=== PATIENT | female | born 1960 | race Caucasian/White ===

== ENCOUNTER 2021-11-15 09:46 | Outpatient (CLI) | payer BC, SELFPAY ==
[2021-11-15 12:26] LABS: Albumin* 4.1 g/dL (3.3-5.0); Chloride* 104 mmol/L (96-114)
[2021-11-15 12:27] LABS: Sodium* 141 mmol/L (135-149)
[2021-11-15 12:29] LABS: Cholesterol* 177 mg/dL (90-199); Creatinine* 0.8 mg/dL (0.5-1.5); Estimated Glomerular Filt Rate 84 ml/min
[2021-11-15 12:30] LABS: Alanine Aminotransferase* 14 U/L (4-35); Alkaline Phosphatase* 82 U/L (40-150); Aspartate Amino Transferase* 23 U/L (12-35); Bilirubin Total* 0.4 mg/dL (0.1-1.5); Blood Urea Nitrogen* 19 mg/dL (7-30); Calcium* 8.7 mg/dL (8.4-10.6); Carbon Dioxide* 32 mmol/L (20-32); Glucose* 94 mg/dL (60-115); HDL Cholesterol* 61 mg/dL (>=50); LDL Cholesterol Calculated 102 mg/dL (<100); Total Protein* 6.9 g/dL (6.0-8.3); Triglycerides* 71 mg/dL (40-149)
== END 2021-11-15 09:47 | disposition home or self-care (01) ==
PROVIDERS: PCP Family Medicine; Visit Provider Family Medicine
DX: Z01.419 Encounter for gynecological examination (general) (routine) without abnormal findings (principal); E78.5 Hyperlipidemia, unspecified
CPT/HCPCS: 80053; 80061

== ENCOUNTER 2021-11-17 14:41 | Outpatient (CLI) | payer BC, SELFPAY | END 2021-11-17 14:42 | disposition home or self-care (01) | LOC: NFLDREF 12-10 11:29 | PROVIDERS: PCP Family Medicine; Visit Provider Family Medicine | DX: Z01.419 Encounter for gynecological examination (general) (routine) without abnormal findings (principal) | CPT/HCPCS: 87624; 88175 ==

== ENCOUNTER 2021-12-10 16:30 | Outpatient (RCR) | payer BC, SELFPAY | END 2022-11-09 11:08 | disposition home or self-care (01) | PROVIDERS: PCP Family Medicine; Visit Provider Family Medicine | DX: M79.601 Pain in right arm (principal); Z51.89 Encounter for other specified aftercare | CPT/HCPCS: 97033; 97035; 97140; 97165 ==

== ENCOUNTER 2021-12-17 15:12 | Emergency (ER) | payer BC, SELFPAY ==
[2021-12-17] VITALS (7 sets, daily range): BP systolic 124–129; BP diastolic 76–84; PULSE 72–87; RESP 18; TEMP 36.9; O2SAT 98–99; BMI 24.2
[2021-12-17 15:51] LABS: Appearance Urine Clear (Clear); Bilirubin Urine Negative (Negative); Blood Urine 3+ (Negative); Color Urine Yellow (Yellow); Glucose Urine Negative (Negative); Ketones Urine Negative (Negative); Leukocyte Esterase Urine Negative (Negative); Nitrite Urine Negative (Negative); Protein Urine Negative (Negative); Urobilinogen Urine 0.2 (0.2-1.0)
--- NOTE | 2021-12-17 15:51 | ED_ITS ---
HPI - Female Genitourinary General Chief complaint: Abdominal Pain Stated complaint: DISCOLORED URINE,ABDOMINAL PAIN - SENT BY CLINIC Time Seen by Provider: 12/17/21 15:14 History of Present Illness HPI Narrative: Lauren is a 61-year-old female patient without significant past medical history who presents to the emergency department via POV with complaints of discolored urine 1 day prior to presentation. The patient reports that she called the clinic and was advised to come to the emergency department for further evaluation and treatment. Patient denies fever, chills, or sweats. The patient denies nausea, vomiting, or significant abdominal pain. The patient reports 1 day prior to presentation she had some bloating, which she felt was secondary to gas. She reports that improved today prior to presentation. She denies changes in her bowel habits. She denies a history of frequent UTI. She reports a remote history of nephrolithiasis, but she reports this pain is not similar to previous kidney stone. She has received no treatment prior to arrival, and she reports that her symptoms appear to have resolved on their own. Since onset of symptoms 1 day prior, she did increase her oral intake of water. When she gave urine sample for testing, she reports the urine color has cleared. Related Data Home Medications Medication Instructions Recorded Confirmed cholecalciferol (vitamin D3) 25 25 mcg PO QDAY 11/17/21 11/17/21 mcg (1,000 unit) capsule pyridoxine (vitamin B6) 100 mg 50 mg PO QDAY 11/17/21 11/17/21 tablet Previous Rx's Medication Instructions Recorded tamsulosin 0.4 mg capsule (Flomax) 0.4 mg PO DAILY #14 caps 12/17/21 tramadol 50 mg tablet (Ultram) 50 mg PO BID PRN pain #14 tabs 12/17/21 Allergies Allergy/AdvReac Type Severity Reaction Status Date / Time No Known Drug Allergies Allergy Verified 11/17/21 13:27 Review of Systems Const: Reports: fatigue and malaise; Denies: fever or chills Cardio: Denies: chest pain, palpitations or shortness of breath with exertion Resp: Denies: shortness of breath or cough GI: Reports: abdominal pain; Denies: nausea, vomiting, heartburn, diarrhea, constipation, bloating or painful bowel movements : Reports: urinary frequency, urinary urgency and other (Rust colored urine); Denies: painful urination, blood in urine, difficulty voiding or decreased urine ouput Musculo: Denies: back pain Neuro: Denies: lack of coordination, dizziness or confusion Endo: Reports: fatigue; Denies: excessive urination PFSH PFSH Medical History (Updated 12/17/21 @ 18:06 by Tonie Reina DO) Dyslipidemia GERD (gastroesophageal reflux disease) (~2018) History of cardiovascular stress test History of kidney stones Surgical History (Updated 11/17/21 @ 13:50 by Marilynn Castro MD) History of appendectomy (1982) History of section (1989) Hx of LASIK (2016) Family History (Updated 10/21/21 @ 10:14 by Marilynn Castro MD) Father Coronary artery disease Stroke Family hx of prostate cancer Uncle Diabetes Aunt Breast cancer, Onset Age: 70 Rheumatoid arthritis Mother Autoimmune disorder Sister Fibromyalgia Maternal Grandfather Stroke Social History (Updated 10/21/21 @ 10:07 by Marilynn Castro MD) Narrative: , orthodontic assistant, 2 kids, lives in [place] Non smoker, 1-2 drinks/ week exercises 2-3/week , walking, biking Smoking Status: Never smoker Do you use any of these nicotine containing products: None Second hand tobacco smoke exposure: No How often do you have a drink containing alcohol: monthly or less How many standard drinks containing alcohol do you have on a typical day: 1 or 2 How often do you have six or more drinks on one occasion: Never AUDIT-C Alcohol total score: 1 Non-prescribed substance use: denies use Little interest or pleasure in doing things: not at all Feeling down, depressed, or hopeless: not at all Exam Const: Vital Signs, click to edit/add: Vital Signs - 24 hr 12/17/21 15:25 12/17/21 16:37 12/17/21 17:01 Temperature 98.4 F Pulse Rate 72 75 Pulse Rate [Right Pulse Oximeter] 87 Respiratory Rate 18 Blood Pressure 126/76 Blood Pressure [Ri ght Upper Arm] 124/77 Pulse Oximetry 98 99 99 Oxygen Delivery Me thod Room Air 12/17/21 17:31 12/17/21 17:32 12/17/21 18:01 Temperature Pulse Rate 75 80 79 Pulse Rate [Right Pulse Oximeter] Respiratory Rate Blood Pressure 125/80 129/84 Blood Pressure [Ri ght Upper Arm] Pulse Oximetry 98 98 98 Oxygen Delivery Me thod 12/17/21 18:02 Temperature Pulse Rate 79 Pulse Rate [Right Pulse Oximeter] Respiratory Rate Blood Pressure Blood Pressure [Ri ght Upper Arm] Pulse Oximetry 98 Oxygen Delivery Me thod Documenting provider has reviewed patient's vital signs: yes Common normals: no apparent distress, average body habitus, oriented x3, no limitations, healthy appearing, alert and well nourished General appearance: cooperative, comfortable, well kempt and well developed; not in distress and not ill appearing Orientation/consciousness: Yes awake, Yes oriented to person, Yes oriented to place and Yes oriented to time HENMT: Common normals: normocephalic and head/scalp atraumatic Head and scalp: normocephalic and atraumatic Resp: Common normals: normal respiratory effort, no retractions, no use of accessory muscles and clear to auscultation bilaterally Effort & inspection: able to speak in complete sentences Auscultation: clear to auscultation bilaterally Cardio: Common normals: regular rate, regular rhythm, S1 normal heart sound, S2 normal heart sound, no gallops, no clicks and no murmurs Rate: regular rate Rhythm: regular rhythm Heart sounds: S1 normal and S2 normal GI: Common normals: Normal to inspection, nondistended, normoactive bowel sounds present and soft to palpation Palpation: soft and tender Details: suprapubic : Common normals: no CVA tenderness Bladder/kidney exam: no CVA tenderness Back & Pelvis: Common normals: no CVA tenderness Extremity: Common normals: normal to inspection and full ROM Neuro: Common normals: oriented x3, CN's II-XII intact bilaterally and moves all extremities Sensorium/orientation: awake, alert, oriented to person, oriented to place and oriented to time Motor exam: no movement abnormalities noted Psych: Appearance: grossly normal and well kempt Skin: Common normals: no rashes or lesions noted General skin exam: no rashes or lesions noted Course Vital Signs Vital signs: Initial Vital Signs Temperature 98.4 F 12/17/21 15:25 Temperature Source Temporal Artery Scan 12/17/21 15:25 Pulse Rate 87 12/17/21 15:25 Respiratory Rate 18 12/17/21 15:25 Blood Pressure 124/77 12/17/21 15:25 Blood Pressure Mean 92 12/17/21 15:25 Blood Pressure Position Sitting 12/17/21 15:25 Pulse Oximetry 98 12/17/21 15:25 Oxygen Delivery Method 12/17/21 15:25 Vital Signs Temperature 98.4 F 12/17/21 15:25 Pulse Rate 87 12/17/21 15:25 Respiratory Rate 18 12/17/21 15:25 Blood Pressure 124/77 12/17/21 15:25 Pulse Oximetry 98 12/17/21 15:25 Oxygen Delivery Method 12/17/21 15:25 Temperature 98.4 F 12/17/21 15:25 Pulse Rate 79 12/17/21 18:02 Respiratory Rate 18 12/17/21 15:25 Blood Pressure 129/84 12/17/21 18:01 Pulse Oximetry 98 12/17/21 18:02 Oxygen Delivery Method 12/17/21 15:25 MDM - Female Genitourinary Lab Data Labs: Lab Results 12/17/21 12/17/21 12/17/21 Range/Units 15:30 15:54 15:54 WBC 8.10 (4.50-11.00) K/uL RBC 4.57 (4.00-5.20) m/uL Hgb 13.1 (12.0-16.0) gm/dL Hct 40.3 (33.0-51.0) % MCV 88 (80-100) fL MCH 29 (26-34) pg MCHC 33 (32-36) gm/dL RDW Coeff of Maurice 12.4 (11.5-15.5) % Plt Count 277 (140-440) K/uL Neut % (Auto) 69.0 (42.0-72.0) % Lymph % (Auto) 24.2 (20-44) % [place] % (Auto) 5.6 (0.0-11.0) % Eos % (Auto) 0.5 (0.0-7.0) % Baso % (Auto) 0.2 (0.0-3.0) % Neut # (Auto) 5.59 (1.7-7.0) K/uL Lymph # (Auto) 1.96 (0.90-2.90) K/uL [place] # (Auto) 0.50 (0.00-0.90) K/UL Eos # (Auto) 0.04 (0.00-0.50) K/uL Baso # (Auto) 0.02 (0.00-0.30) K/uL Abs Immat Gran (auto) 0.04 (0.00-0.30) K/uL Sodium 140 (135-149) mmol/L Potassium 3.9 (3.6-5.1) mmol/L Chloride 105 (96-114) mmol/L Carbon Dioxide 28 (20-32) mmol/L BUN 16 (7-30) mg/dL Creatinine 0.8 (0.5-1.5) mg/dL Estimated Creat Clear 64.58 Estimated GFR 84 ml/min Glucose 117 H (60-115) mg/dL Calcium 8.9 (8.4-10.6) mg/dL Urine Color Yellow (Yellow) Urine Appearance Clear (Clear) Urine pH 7.0 (5.0-8.5) Ur Specific [place] 1.010 (1.000-1.030) Urine Protein Negative (Negative) Urine Glucose (UA) Negative (Negative) Urine Ketones Negative (Negative) Urine Blood 3+ A (Negative) Urine Nitrite Negative (Negative) Urine Bilirubin Negative (Negative) Urine Urobilinogen 0.2 (0.2-1.0) Ur Leukocyte Esterase Negative (Negative) Urine RBC 0-2 (0-2) Urine WBC 5-10 A (0-5) Ur Squamous Epith Cells None (None-Few) Urine Bacteria None (None) Discharge Plan Discharge Clinical Impression: Left nephrolithiasis, Thickened endometrium Patient Disposition: Home, Self-Care Condition: Stable Instructions: How to Strain Your Urine (ED) Additional Instructions: Thank you for choosing [facility] for your care today. Consider treatment with Flomax, NSAIDs, and pain medication. Use medication as directed. Urology referral discussed. Encouraged to drink plenty of water. Patient advised to eliminate soda and tea from diet. Discussed consideration of straining urine for stone analysis, if stone passes. Follow up recommended PRN. I recommend calling primary care for follow-up in the next 3-5 days for persistent symptoms. If new or worsening symptoms develop or you have any concerns in the meantime, please call your primary care clinic or return to the ER for re-evaluation. Activity Level: No Restrictions and Activity as Tolerated Discharge Diet: Regular and Heart Healthy (2 gm sodium, low fat) Prescriptions: New tamsulosin [Flomax] 0.4 mg capsule 0.4 mg PO DAILY Qty: 14 2RF tramadol [Ultram] 50 mg tablet 50 mg PO BID PRN (Reason: pain) Qty: 14 0RF No Action cholecalciferol (vitamin D3) 25 mcg (1,000 unit) capsule 25 mcg PO QDAY pyridoxine (vitamin B6) 100 mg tablet 50 mg PO QDAY Follow Up/Referrals: Marilynn Castro MD [Primary Care Provider] - 12/20/21 (Please assist patient with urology follow-up. In addition, incidental endometrial thickening noted. Recommend US at earliest availability.) Stand Alone Forms: [employer] Info Instructions
[2021-12-17 15:59] LABS: Basophils Absolute Auto 0.02 K/uL (0.00-0.30); Basophils Percent Auto 0.2 % (0.0-3.0); Eosinophils Absolute Auto 0.04 K/uL (0.00-0.50); Eosinophils Percent Auto 0.5 % (0.0-7.0); Hematocrit 40.3 % (33.0-51.0); Hemoglobin* 13.1 gm/dL (12.0-16.0); Immature Granulocytes Abs Auto 0.04 K/uL (0.00-0.30); Lymphocytes Absolute Auto 1.96 K/uL (0.90-2.90); Lymphocytes Percent Auto 24.2 % (20-44); Mean Corpuscular HGB Conc 33 gm/dL (32-36); Mean Corpuscular Hemoglobin 29 pg (26-34); Mean Corpuscular Volume 88 fL (80-100); Monocytes Percent Auto 5.6 % (0.0-11.0); Neutrophils Absolute Auto 5.59 K/uL (1.7-7.0); Platelet Count* 277 K/uL (140-440); RDW Coefficient of Variation % 12.4 % (11.5-15.5); Red Blood Count 4.57 m/uL (4.00-5.20)
--- NOTE | 2021-12-17 16:03 | CRLHL7_ITS ---
For Patients: As a result of the 21st Century Cures Act, medical imaging exams and procedure reports are released immediately into your electronic medical record. You may view this report before your referring provider. If you have questions, please contact your health care provider. INDICATION: Hematuria COMPARISON: There are no prior studies for comparison TECHNIQUE: CT examination of the abdomen and pelvis was performed without intravenous contrast. Thin section axial images were obtained from the lung bases through the pubic symphysis. Oral contrast was not administered. Please note that all CT scans at this facility use dose modulation, iterative reconstruction, and/or weight-based dosing when appropriate to reduce radiation dose to as low as reasonably achievable. FINDINGS: LUNG BASES: Trace basilar atelectasis. Heart size is normal at the lung bases.The heart size is normal at the lung bases. LIVER/BILIARY SYSTEM:The liver is normal in size and configuration given the lack of intravenous contrast. There is no visible focal mass and there is no intra- or extra hepatic biliary ductal dilatation.The gall bladder appears normal. ADRENALS: Normal non-contrast appearance KIDNEYS, URETERS and BLADDER:Normal size kidneys. No definite intrarenal calculus on right. Multiple intrarenal calculi on the left in the 1 to 3 millimeter range. There is left-sided obstructive uropathy due to a someone recall calculus at the left ureteropelvic junction. This measures 4.4 millimeters in diameter and 11.2 millimeters in length SPLEEN:Normal non-contrast appearance. PANCREAS: Normal non-contrast appearance. RETROPERITONEUM and MESENTERY: There is no mass, adenopathy or aortic aneurysm. GASTROINTESTINAL SYSTEM: There is no evidence of diverticulitis, colitis, mechanical obstruction, or appendicitis. The small bowel as visualized appears normal.Scattered diverticulosis PELVIS: There is either fluid within the endometrial canal or there is endometrial thickening. In either event, this is abnormal for a patient of this age warranting a follow-up ultrasound at a clinically appropriate time. OSSEOUS STRUCTURES and ABDOMINAL WALL: There is an age-appropriate appearance of the osseous structures.No significant abdominal wall defect. OTHER: No free fluid or free air. IMPRESSION: 1. Left-sided obstructive uropathy due to a cylindrical calcified calculus at the left ureteropelvic junction measuring 4 millimeters in diameter and 11.2 millimeters in length. Intrarenal calculi on the left. No intrarenal calculi on the right. 2. There is either fluid within the endometrial canal or endometrial thickening. Abnormal for a patient of this age. Sonography recommended at a clinically appropriate time for further evaluation. Please note that all CT scans at this facility use dose modulation, iterative reconstruction, and/or weight-based dosing when appropriate to reduce radiation dose to as low as reasonably achievable. Dictated by Jose Fuentes MD @ 12/17/2021 4:54:18 PM (Electronically Signed)
[2021-12-17 16:16] LABS: Slide Review Reflex No
[2021-12-17 16:29] LABS: Chloride* 105 mmol/L (96-114)
[2021-12-17 16:30] LABS: Potassium* 3.9 mmol/L (3.6-5.1); Sodium* 140 mmol/L (135-149)
[2021-12-17 16:32] LABS: Creatinine* 0.8 mg/dL (0.5-1.5); Est. Creatinine Clearance* 64.58; Estimated Glomerular Filt Rate 84 ml/min
[2021-12-17 16:33] LABS: Blood Urea Nitrogen* 16 mg/dL (7-30); Calcium* 8.9 mg/dL (8.4-10.6); Carbon Dioxide* 28 mmol/L (20-32); Glucose* 117 mg/dL (60-115)
[2021-12-17 16:45] LABS: RBC Urine 0-2 (0-2)
== END 2021-12-17 18:19 | disposition home or self-care (01) ==
PROVIDERS: Emergency Provider Family Medicine; PCP Family Medicine
DX: N20.0 Calculus of kidney (principal)
CPT/HCPCS: 36415; 74176; 80048; 81001; 81003; 85025; 87086; 99284

== ENCOUNTER 2021-12-29 13:47 | Outpatient (CLI) | payer BC, SELFPAY ==
--- NOTE | 2021-12-29 14:00 | CRLHL7_ITS ---
For Patients: As a result of the Century Cures Act, medical imaging exams and procedure reports are released immediately into your electronic medical record. You may view this report before your referring provider. If you have questions, please contact your health care provider. INDICATION: Follow-up abnormal finding on CT COMPARISON: CT 12/17/2021 TECHNIQUE: 2D oconnell scale and color Doppler images were acquired of the pelvis using a transabdominal and transvaginal approach. FINDINGS: Sonographic images demonstrate a normal size and smooth outer contour of the uterus. Uterus measures 6.7 cm in length by 3.0 cm in AP diameter by 0.2 cm in transverse dimension. The myometrium has a normal uniform echotexture. The endometrial lining appears thickened and heterogeneous with multiple small cystic areas and measures 11 mm in composite thickness. The right ovary measures 2.6 x 1.0 x 1.1 cm in size and the left ovary measures 2.1 x 1.3 x 1.4 cm. The ovaries demonstrate normal arterial and venous blood flow on color Doppler analysis. There are no suspicious fluid collections within the cul-de-sac. IMPRESSION: Thickened and heterogeneous endometrium measuring 11 millimeters, representing endometrial hyperplasia or adenomyosis. No uterine fibroid. No endometrial fluid. Dictated by Blas Li MD @ 12/29/2021 2:49:30 PM (Electronically Signed)
== END 2021-12-29 13:48 | disposition home or self-care (01) ==
PROVIDERS: PCP Family Medicine; Visit Provider Family Medicine
DX: R93.89 Abnormal findings on diagnostic imaging of other specified body structures (principal)
CPT/HCPCS: 76830; 76856

== ENCOUNTER 2022-02-08 08:11 | Outpatient (CLI) | payer BC, SELFPAY ==
--- NOTE | 2022-02-08 08:15 | CRLHL7_ITS ---
For Patients: As a result of the Century Cures Act, medical imaging exams and procedure reports are released immediately into your electronic medical record. You may view this report before your referring provider. If you have questions, please contact your health care provider. BILATERAL SCREENING MAMMOGRAM WITH COMPUTER-AIDED DETECTION TECHNIQUE: CC and MLO views were obtained. These mammographic images have been obtained using full-field digital technique. These mammographic images were interpreted with the benefit of computer-aided detection. COMPARISON FILM: [place] 2015, 2017, 2019. FINDINGS: There are scattered areas of fibroglandular density IMPRESSION: There is no radiographic evidence for malignancy. ASSESSMENT: BI-RADS Category 1: Negative RECOMMENDATION: Routine screening mammogram in 1 year. A lay language report of this examination will be provided to the patient. Blas Li M.D. Diagnostic Radiologist [email or web address] UVALDO/Dictated by: Blas Li MD @ 02/14/2022 8:43:00 AM (Electronically Signed)
--- OUTSIDE RECORDS SUMMARY | 2022-02-08 08:17 | XMS_ITS | Clinical Summary ---
:1960 Author Organization [employer] [facility] Address [place] [address] Care Team Providers Name Role Phone Marilynn Castro MD Primary Care Provider [phone] Allergies No known active allergies Medications Medication Sig Dispensed Refills Start Date End Date Status cholecalciferol Take 1,000 units by 0 Active (VITAMIN D3) 1,000 mouth once daily. unit capsule pyridoxine, vitamin Take by mouth once 0 Active B6, (VITAMIN B6) 100 daily. mg tablet HYDROcodone-acetamino Take 1-2 Tablets by 10 Tablet 0 01/11/20 22 Active phen (NORCO) 5-325 mg mouth every 4 hours per if needed for Pain. tabletIndications: Max acetaminophen Calculus of kidney dose: 4000 mg in 24 and ureter hrs. oxybutynin (DITROPAN) Take 1 Tablet (5 20 Tablet 1 01/10/2022 Active 5 mg mg) by mouth 3 tabletIndications: times daily if Calculus of kidney needed (Bladder and ureter Spasm). Active Problems No known active problems Encounters Date Type Specialty Care Team Description 01/10/2022 Anesthesia Event Anthony Mack MD Laberge, Thomas Patrick, MD 01/10/2022 Surgery Blas Sanz, CYSTOSC OPY, LEFT MD URETEROSCOPY, L EFT RETROGRADE PYEL OGRAM, LASER LITHOTRIP SY, LEFT URETERAL STENT PLACEMENT 01/10/2022 Hospital Encounter Blas Sanz C alculus of kidney and ureter (Primary Dx) 01/10/2022 Travel 01/07/2022 Travel 11/18/2021 Lab Requisition Marilynn Castro MD from Last 3 Months Social History Tobacco Use Types Packs/Day Years Used Date Never Smoker Smokeless Tobacco: Never Used Alcohol Use Standard Drinks/Week Comments Yes 0 (1 standard drink = 0.6 oz pure alcoho l) occas Alcohol Habits Answer Date Recorded How often do you have a drink containing alcohol? Not asked How many drinks containing alcohol do you have on a typical Not asked day when you are drinking? How often do you have six or more drinks on one occasion? No t asked Comment: occas 01/07/2022 Sex Assigned at Date Recorded Not on file COVID-19 Exposure Response Date Recorded In the last 10 days, have you been in contact with No / Unsu re 01/10/2022 11:51 AM CDT someone who was confirmed or suspected to have Coronavirus/COVID-19? Obstetrics History Last Filed Vital Signs Vital Sign Reading Time Taken Comments Blood Pressure 132/75 01/10/2022 6:00 PM CDT Pulse 77 01/10/2022 6:00 PM CDT Temperature 36.7 ??C (98 ??F) 01/10/2022 6:00 PM CDT Respiratory Rate 16 01/10/2022 6:00 PM CDT Oxygen Saturation 98% 01/10/2022 6:00 PM CDT Inhaled Oxygen Concentration - - Weight 64.4 kg (141 lb 15.6 oz) 01/10/2022 12:39 PM CDT Height 162.6 cm (5' 4) 01/10/2022 12:39 PM CDT Body Mass Index 24.37 01/10/2022 12:39 PM CDT Plan of Treatment Health Maintenance Due Date Last Done Comments Tdap 1972 Depression screening for age 12+ 1973 BMI (ht and wt on same day) for age 0307/01/1979 18+ Hepatitis C screening for age 18-79 07/01/1979 Tetanus booster 1981 Colonoscopy through age 75 2006 Lipids for age 45-75 2006 Mammogram for age 45-75 2006 Zoster (shingles) series for age 50+ 07/01/2011 (1 of 2) COVID-19 vaccine series (4 - Booster 05/07/2021 03/12/2021, 08/19/2020, for Moderna series) 07/22/2020 Influenza for age 50-64 12/23/2021 Pap test for age 21-65 11/17/2024 11/17/2021 Medical Devices Implanted Type Area Director Of Institutional Giving Device Shelf Model / Identifier Expiration Date Ser ial / Lot Stent Uret [id number] Percuflex Hydroplus - [id number] Left: [facility] 08/30/2024 [id number] / Implanted: Qty: 1 on 01/10/2022 by Blas Sanz MD a t [facility] Ureter / [id number] Procedures Procedure Name Priority Date/Time Associated Comments Diagnosis XR RETROGRADE Routine 01/10/2022 4:13 PM Results for this PYELOGRAM W/WO KUB CDT procedure are in the results section. STONE ANALYSIS Today 01/10/2022 3:53 PM Results for this CDT procedure are i n the results section. ENDOTRACHEAL TUBE Routine 01/10/2022 3:29 PM Resu lts for this CDT procedure are i n the results section. CYSTOSCOPY 01/10/2022 3:04 PM CALCULUS OF KIDNEY URETEROSCOPY STONE CDT AND URETER ABLATION LASER Case Notes 90 MIN TFCARM LASER Special Needs HT 5'4 WT 64.9 Kg BMI 24.55 ,COVID-19 results in H&P in scans SCAN-CARDIAC STRIP 01/10/2022 12:00 AM CDT Results for this procedure are i n the results section . LAB TRACKING EVENT Routine 11/17/2021 2:04 PM CDT CIVIL DESIGN TECHNICIAN THIN PREP PAP SCREEN Routine 11/17/2021 2:04 PM CDT Results for this IMAGED - Unsuccessful proced ure are in the Attempt results section . HPV THIN PREP Routine 11/17/2021 2:04 PM CDT Resu lts for this procedure are i n the results section . from Last 3 Months Results XR RETROGRADE PYELOGRAM W/WO KUB (01/10/2022 4:13 PM CDT) Anatomical Region Laterality Modality KIDNEYS, Abdomen Computed Radiography Specimen (Source) Anatomical Collection Method Collection Time Re ceived Time Location / / Volume Laterality 01/10/2022 4:13 PM CDT Narrative 01/10/2022 4:27 PM CDT For Patients: As a result of the Century Cures Act, medical imaging exams and procedure reports are released immediately into your [facility] medical record. You may view this report before your referring provider. If you have questions, please contact your health care provider. EXAM: XR RETROGRADE PYELOGRAM W/WO KUB LOCATION: [facility] MEDICAL IMAGING DATE/TIME: 01/10/2022 4:13 PM INDICATION: Hematuria COMPARISON: None. TECHNIQUE: Exam performed by urologist. 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 Placement of a left- sided double-J ureteral stent in the lower moiety in expected location. Procedure Note Bud Arriaza MD - 01/10/2022 For Patients: As a result of the ntury Cures Act, medical imaging exams and procedure reports are released immediately into your electronic medical record. You may view this report before your referring provider. If you have questions, please contact [facility] health care provider. EXAM: XR RETROGRADE PYELOGRAM W/WO KUB LOCATION: [facility] MEDICAL IMAGING DATE/TIME: 01/10/2022 4:13 PM INDICATION: Hematuria COMPARISON: None. TECHNIQUE: Exam performed by urologist. 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 Placement of a left- sided double-J ureteral stent in the lower moiety in expected location. Blas Sanz MD GENERAL IMAGING STONE ANALYSIS (01/10/2022 3:53 PM CDT) athologist Signature Source Comment 01/14/2022 [facility] 6:07 PM CDT [facility] ([facility]ET) Comment: Multiple sources Color [place]rington 01/14/2022 6:07 PM CDT [facility] ([facility]) Size 4x4 mm 01/14/2022 6:07 PM CDT [facility] ([facility]) Comment: Multiple pieces received. ??Dimensions o f the largest piece reported. Weight 55 mg 01/14/2022 6:07 PM CDT [facility] (CE T) Composition Comment 01/14/2022 6:[address] [facility] (CE T) Comment: Percentage (Represents the % co mposition) Calcium Oxalate Monoh 30 % 01/14/2022 6:07 PM CDT [facility] (CET) Calcium Oxalate Dihyd 60 % 01/14/2022 6:07 PM CDT [facility] TEST[facility] (CET) Hydroxyapatite 10 % 01/14/2022 6:07 PM CDT [facility] (CET) Comment Comment 01/14/2022 6:07 PM CDT [facility] (CET) Comment: Source Provided: left ureteral and left kidney Comment Comment 01/14/2022 6:07 PM CDT [facility] (CET) Comment: Calculus received in liquid. Wet calculi must be dried before analysis, which delays reporting of results. Leaving calculi in liquid (such as water, saline , blood, urine) may lead to changes in composition. Photo Comment 01/14/2022 6:07 PM CDT [facility] (CET) Comment: Photograph will follow under a separate cover Comment: Comment 01/14/2022 6:07 PM CDT [facility] (CE T) Comment: Physician questions regarding Calculi An alysis contact [facility] at: [phone]. Please note: Comment 01/14/2022 6:07 PM CDT [facility] Comment: Calculi report will follow via computer, mail or heart nurse delivery. Disclaimer: Comment 01/14/2022 6:[address] [facility] (CE T) Comment: This test was developed and its performa nce characteristics determined by [facility]. ??It has not been cleared or approved by the Food and Drug Administration. Specimen Anatomical Collection Method Collection Time Receive d Time (Source) Location / / Volume Laterality Calculi (stone) Non-Blood / 01/10/2022 3:53 PM 2021 4:57 (Left Ureter Unknown CDT PM CDT Stone) Narrative [facility] (CET) - 01/14/2022 6:07 PM CDT Performed at: ??01 - [facility] [address] [place], [place], [place] [id number] Dispute Coordinator: Rashaad Dominguez PhD, Phone: ?? [phone] Blas Sanz MD SEND OUTS Performing Organization Address City/State/ZIP Code Phon e Number [facility] [address] [place], [place] [address] ESOTERIC TESTING (CET) ETT (01/10/2022 3:29 PM CDT) Narrative Hitesh Walters CRNA Student - 3:29 PM CDT Hitesh Walters CRNA Student ? 01/10/2022 ??3:30 PM Procedure: ETT Patient location during procedure: OR ETT Properties Mask Ventilation: easy Final Technique: direct laryngoscopy Type: straight Location: oral Cuffed: yes Tube Size: 6.5 mm Stylet: yes Laryngoscope Blade: Jimenez Blade Size: 2 Cormack-Lehane Grade View: 1 Insertion Attempts: 1 Placement Verification: auscultation, en d tidal CO2 and symmetrical chest wall movement Assessment: dentition unchanged, atrauma tic and pharynx clear Secured at: 23 Measured From: lips Difficulty: 0 (not difficult) Electronically signed by Elliott Stevens CRNA ? Anthony Mack MD ANESTHESIA PX NOTE ORDERABLE S SCAN-CARDIAC STRIP (01/10/2022 12:00 AM CDT) Narrative 01/10/2022 12:00 AM CDT This result has an attachment that is no t available. Ordered by an unspecified provider. Other Clinical Staff OTHER LAB TRACKING EVENT (11/17/2021 2:04 PM CDT) Specimen Anatomical Collection Method Collection Time Receive d Time (Source) Location / / Volume Laterality Other (Other) Client Collect / 11/17/2021 2:04 PM 10/23 6:19 Unknown CDT PM CDT Marilynn Castro MD LAB BILL ONLY Performing Organization Address City/State/ZIP Code Phon e Number [facility] [address] [place] [address] LABORATORY-CENTRAL 2000 LABORATORY CIVIL DESIGN TECHNICIAN THIN PREP PAP SCREEN IMAGED (11/17/2021 2:04 PM CDT) - Unsuccessful Attempt Component Value Ref Test Analysis Performed At [facility] gist Range Method Time Signature Case Report Gynecologic Cytology Report ? Case: [id number] ? 12/03/2021 JOSE Authorizing Provider: ??Marilynn Springer MD ??Collected: ? 11/17/2021 1404 ? 8:52 AM HEALTH Ordering Location: ? [facility] CENTRAL LAB ?Received: ?11/19/2021 0846 ? CDT [place] BORATORY-C First Screen: ? Reid Borden ? ENTRAL Rescreen: ?Avelina Sainz ? LABORATORY Specimen: ?CIVIL DESIGN TECHNICIAN ThinPrep Vial Screening, Cervical/Vaginal ? INTERPRETATION UNSATISFACTORY (none) 12/03/2021 [facility] Electronically /RESULT FOR EVALUATION 8:52 AM [facility] stevie d by Alistair ([facility]) CDT LABORATORY-C Avelina o n ENTRAL 12/03/2021 at LABORATORY 8:52 AM SPECIMEN Specimen processed and exami vicky, but unsatisfactory for evaluation of epithelial abnormality because of: 12/03/2021 [facility] ADEQUACY Scant cellularity 8:52 AM [facility] LABORATORY HPV REQUEST HPV and PAP 12/03/2021 [facility] 8:52 AM [facility]-C ENTRAL LABORATORY Additional 12/03/2021 [facility] Information 8:52 AM [facility]-C [facility] Comment: Interpreted at [facility], Central Laboratory - [address] [address] Automated Review Successful 12/03/2021 8:52 AM [facility]ORAT[facility]-CENTRAL L ABORATORY Comment: Specimen processed successfully by automated indirect fire infantryman device, [employer] System[employer] ANCILLARY TESTING HPV Ordered, 12/03/2021 8:52 AM [facility] CIVIL DESIGN TECHNICIAN Please see CDT LABORATORY-CENTRAL separate report LABORATORY Note The pap test is a 12/03/2021 8:52 AM [facility] CDT LABORATORY-CENTRAL technique, not a LABORATORY diagnostic procedure. It is used primarily to screen for squamous cancers and precursor lesions. Published studies have shown that it is subject to both false negative and false positive results. The pap test should not be used as the sole means to diagnose or exclude pre-malignant and malignant lesions. Specimen Anatomical Collection Method Collection Time Receive d Time (Source) Location / / Volume Laterality Other 11/17/2021 2:04 PM 8:46 (Cervical/Vagina CDT AM CDT l) Marilynn Castro MD PATHOLOGY/CYTOLOGY Performing Organization Address City/State/ZIP Code Phon e Number [facility] [address] [place] [address] LABORATORY-CENTRAL 2000 LABORATORY HPV HIGH RISK (11/17/2021 2:04 PM CDT) Analysis Performed At Patho logist Time Signature TYPE 16 Negative Negative 11/22/2021 [facility] 2:06 PM CDT LABORATORY-ARTUR TRAL LABORATORY TYPE 18 Negative Negative 11/22/2021 [facility] 2:06 PM CDT LABORATORY-ARTUR TRAL LABORATORY OTHER HIGH Negative Negative 11/22/2021 [facility] RISK TYPES 2:06 PM CDT LABORATORY-ARTUR TRAL LABORATORY Specimen Anatomical Collection Method Collection Time Receive d Time (Source) Location / / Volume Laterality Other 11/17/2021 2:04 PM 8:46 (Cervical/Vagina CDT AM CDT l) Narrative [facility] LABORATORY-CENTRAL LABORAT ORY - 11/22/2021 2:06 PM CDT HPV types 16, 18, 31, 33, 35, 39, 45, 51, 52, 56, 58, 59, 66 and 68 DNA were undetectable or below the pre-set threshold. Methodology: Barb Micky 4800 HPV Test Marilynn Castro MD MICROBIOLOGY Performing Organization Address City/[facility] Code Phon e Number [facility] [address] [place] [address] LABORATORY-CENTRAL 2000 LABORATORY from Last 3 Months Insurance Payer Benefit Plan / Subscriber ID Effective Dates Phone Addre ss Type Group BLUE CROSS BLUE CROSS OF [id number] 2021-[facility] [address] [place] [address] Advance Directives Latest Code Status on File Code Status Date Activated Date Inactivated Comments Full Code 01/10/2022 12:26 PM 01/10/2022 8:41 PM Should be d iscussed pre operatively with anesthesia or surgeon Code Status Discussion: Not Discussed Care Teams President Practicing Urologist Relationship Specialty Start Date End Date Marilynn Castro MD PCP - General Family Practice 12/29/211999 [place] [address]
== END 2022-02-08 08:12 | disposition home or self-care (01) ==
PROVIDERS: PCP Family Medicine; Visit Provider Family Medicine
DX: Z12.31 Encounter for screening mammogram for malignant neoplasm of breast (principal)
CPT/HCPCS: 77067; 87635

== ENCOUNTER 2022-02-10 10:30 | Day surgery (SDC) | payer BC, SELFPAY ==
[2022-02-10] VITALS (7 sets, daily range): BP systolic 112–133; BP diastolic 69–78; PULSE 69–80; RESP 16; TEMP 36.1–36.7; O2SAT 99–100; BMI 24.9
[2022-02-10] MEDS: LACTATED RINGERS 1000 ML 1,000 ML 100 ML IV (11:00)
[2022-02-10] MEDS: SODIUM CHLORIDE 0.9 % (FLUSH) 10 ML SYRINGE IVF (11:05)
[2022-02-10 11:13] LABS: Hemoglobin* 13.3 gm/dL (12.0-16.0)
--- NOTE | 2022-02-10 14:21 | W.ANESCHARGE ---
Anesthesia Charges Start Date/Time Anesthesia Start Date: 02/10/22 Anesthesia Start Time: 13:30 Stop Date/Time Anesthesia Stop Date: 02/10/22 Anesthesia Stop Time: 14:22 Summary Emergency: No
--- NOTE | 2022-02-10 14:27 | W.ANESCHARGE ---
Anesthesia Charges Start Date/Time Anesthesia Start Date: 02/10/22 Anesthesia Start Time: 13:30 Stop Date/Time Anesthesia Stop Date: 02/10/22 Anesthesia Stop Time: 14:22 Summary Emergency: No
[2022-02-10] MEDS: ACETAMINOPHEN 500 MG TABLET 1000 MG PO (15:18)
--- NOTE | 2022-02-11 08:07 | W.PM.GYNPROC ---
Procedure Note Date Seen: 02/10/22 Procedure Details: Preop Diagnosis: Postmenopausal thick endometrium Postop diagnosis: Postmenopausal thick endometrial, possible endometrial polyps Cervical nabothian cyst, fleshy lesion Name of procedure: Hysteroscopy, dilation and curettage, cervical biopsy, Pap smear performance Anesthesia: MAC EBL: 25 mL Complications: None Surgeon: Isabelle Abdul Boring Machine Set Up Operator: None Drains: None Findings: Speculum exam: Cervix multiparous, nabothian cyst seen at the posterior lip of cervix, a 1 cm fleshy lesion seen at the posterior cervix, this looked like a pedunculated lesion attached to the posterior lip of cervix. No abnormal cervical discharge. Intrauterine: Multiple large polypoid lesions, bilateral tubal ostia seen, background atrophic endometrium. Patient was taken to the OR were MAC anesthesia was administered without difficulty. She was placed in the dorsal lithotomy position with Darron type stirrups. An exam under anesthesia as described above. Before sterile prep a pap smear was completed of the cervix, findings as above. Patient was then prepared and draped in the normal sterile fashion. A bivalved speculum was inserted in the posterior aspect of the vagina. 0.5% Marcaine was injected at 2 and 11 o'clock a total of about 5mL utilized. A single-tooth tenaculum was used to grasp the anterior lip of the cervix. The uterus was carefully sounded to 8 cm. The cervical os was sequentially dilated to accommodate the 5 mm TrueClear hysteroscope using Hegar dilators. A 5 mm 30 degree TrueClear hysteroscope was introduced under direct visualization, and the uterus was distended with normal saline. Findings as above. Soft tissue incisor blade from TrueClear hysteroscope system was introduced under direct visualization and endometrial curettings performed with removal of polypoid lesions. Hysteroscope removed under direct visualization. Previously described cervical lesion was grasped with a long prosper forceps and with clockwise motion the lesion was removed. Silver nitrate utilized to coagulate base of the lesion. Hemostasis secured. Tenaculum was removed from the cervix and good hemostasis was noted at puncture sites. Patient tolerated the procedure well. Instrument and sponge counts were correct x2. The patient was awakened from MAC anesthesia and taken to the recovery room in a stable condition. The patient will go home after recovering from anesthesia and meeting all the criteria for discharge. She was given instruction regarding follow-up visit in 2 weeks at [facility] and instructions for pain medication. Fluid deficit: 150mL Pathology specimens: Endometrial curettings, cervical biopsy, Pap smear
== END 2022-02-10 15:45 | disposition home or self-care (01) ==
PROVIDERS: PCP Family Medicine; Visit Provider Obstetrics & Gynecology
PROC: 0UDB8ZZ Extraction of Endometrium, Via Natural or Artificial Opening Endoscopic (ICD-10-PCS; CPT 58558; principal; 2022-02-10 12:45)
DX: N95.8 Other specified menopausal and perimenopausal disorders (principal); R93.89 Abnormal findings on diagnostic imaging of other specified body structures; N88.8 Other specified noninflammatory disorders of cervix uteri; N84.0 Polyp of corpus uteri
CPT/HCPCS: 58558; 57500; 00952; 36415; 85018; 87624; A9270; J1100; J2250; J2405; J2704; J3010; J7120

== ENCOUNTER 2022-02-16 08:02 | Outpatient (CLI) | payer BC, SELFPAY ==
--- OUTSIDE RECORDS SUMMARY | 2022-02-16 08:03 | XMS_ITS | Clinical Summary ---
:1960 Author Organization [facility] [place] [address] Care Team Providers Name Role Phone Marilynn Castro MD Primary Care Provider [phone] Allergies No known active allergies Medications [...] Encounters Date Type Specialty Care Team Description 02/11/2022 Lab Requisition Isabelle Abdul MD 02/11/2022 Lab Requisition Isabelle Abdul MD 01/10/2022 Anesthesia Event Anthony Mack MD Laberge, Thomas Patrick, MD 01/10/2022 Surgery Blas Sanz, CYSTOSC OPY, LEFT MD URETEROSCOPY, L EFT RETROGRADE PYEL OGRAM, LASER LITHOTRIP SY, LEFT URETERAL STENT PLACEMENT 01/10/2022 Hospital Encounter Blas Sanz, C alculus of kidney and ureter (Primary [...] Assigned at Date Recorded Not on file Obstetrics History Last Filed Vital Signs Vital [...] 11/17/2024 11/17/2021 Medical Devices Implanted Type Area Tariff Expert Device Shelf Model / Identifier Expiration Date Ser ial / Lot Stent Uret [id number] Percuflex Hydroplus - [id number] Left: [facility] 08/30/2024 [id number] / Implanted: Qty: 1 on 01/10/2022 by Blas Sanz MD a t [facility] Ureter / [id number] Procedures Procedure Name Priority Date/Time Associated Comments Diagnosis PATH TISSUE EXAM Routine 02/11/2022 2:15 PM Resul ts for this CDT procedure are i n the results section. LAB TRACKING EVENT Routine 02/10/2022 2:00 PM CDT XR RETROGRADE Routine 01/10/2022 4:13 PM Results [...] TRACKING EVENT Routine 11/17/2021 2:04 PM CDT CORRUGATED BOX MACHINE OPERATOR THIN PREP PAP SCREEN Routine 11/17/2021 2:04 PM CDT Results for this IMAGED - Unsuccessful proced ure are in the Attempt results section . HPV THIN PREP Routine 11/17/2021 2:04 PM CDT Resu lts for this procedure are i n the results section . from Last 3 Months Results PATH TISSUE EXAM (02/11/2022 2:15 PM CDT) Component Value Ref Test Analysis Performed At [facility] gist Range Method Time Signature Case Report Pathology Report ?Case: [id number] ? 02/14/2022 [facility] Authorizing Provider: ??Isabelle Cifuentes ??Collected: ? 02/11/2022 1415 ? 2:17 PM HEALTH ? M, MD ? CDT LABORATORY-C Ordering Location: ? [facility]TRAL [facility] ?Received: ?02/11/2022 1521 ? EN TRAL Pathologist: ? Blas Cordova MD ? LABORATORY Specimens: ?? A) - Uterine C urettings ? B) - Cerv ical ? Final A) ENDOMETRIUM, CURETTAGE AND POLYPECTOMY: 02/14/2022 [facility] Electronically Diagnosis 1. Fragments of benign endometrial polyp(s) 2:17 PM HEALTH signed by Art, 2. Background inactive endometrium CDT LABORATORY-C Blas Livingston MD on 3. Negative for atypia and malignancy ENTRAL 02/14/2022 at LABORATORY 2:17 PM B) CERVIX, BIOPSY: 1. Benign cervical mucosa ? a. Sampling: Ectocervix and endocervix ?? b. Transformation zone: Present 2. Negative for glandular neoplasia, squamous intraepithelia l lesion, ?? and malignancy Clinical Menorrhagia, 02/14/2022 [facility] Information polyps 2:17 PM HEALTH CDT LABORATORY-C ENTRAL LABORATORY Gross A) Received in formalin, lab eled with the patient's name and uterine curettings, is a 3.4 x 2.8 x 0.4 cm aggregate of morcellated michaels tissue admixed with clotted blood. The specimen is entirely submitted in 2 cassettes. 02/14/2022 [facility] Description 2:17 PM HEALTH B) Received in formalin, lab eled with the patient's name and cervical biopsy, is a single michaels mucosal fragment measuring 1.0 cm. The specimen is submitted in toto in one cassette. CDT LABORATORY-C ENTRAL LH 02/11/2022 LABORATORY Microscopic The final 02/14/2022 [facility] Description diagnosis is based 2:17 PM HEALTH on microscopic CDT LABORATORY-C examination of ENTRAL appropriate LABORATORY sections of all specimens. Additional 02/14/2022 [facility] Information Interpreted at [facility], Central Laboratory - [address], [place] [address] 2:17 PM HEALTH CDT LABORATORY-C ENTRAL LABORATORY Specimen Anatomical Collection Method Collection Time Receive d Time (Source) Location / / Volume Laterality Other (Uterine 02/11/2022 2:15 PM 022 3:21 Curettings) CDT PM CDT Specimen 02/11/2022 2:16 PM 2 3:21 (specimen) CDT PM CDT (Cervical) Isabelle Abdul MD PATHOLOGY/CYTOLOGY Performing Organization Address City/State/ZIP Code Phon e Number [facility] [address] [place] [address] LABORATORY-CENTRAL 2000 LABORATORY LAB TRACKING EVENT (02/10/2022 2:00 PM CDT)Only the most recent of2 results within the time period is included. Specimen Anatomical Collection Method Collection Time Receive d Time (Source) Location / / Volume Laterality Other (Other) Client Collect / 02/10/2022 2:00 PM 01/23 8:19 Unknown CDT AM CDT Isabelle Abdul MD LAB BILL ONLY Performing Organization Address City/State/ZIP Code Phon e Number JOSE [facility] [address] [place] [address] LABORATORY-CENTRAL 2000 LABORATORY XR RETROGRADE PYELOGRAM W/WO KUB (01/10/2022 4:13 PM CDT) Anatomical Region Laterality Modality KIDNEYS, Abdomen Computed Radiography Specimen (Source) Anatomical Collection Method Collection Time Re ceived Time Location / / Volume Laterality 01/10/2022 4:13 PM CDT Narrative 01/10/2022 4:27 PM CDT For Patients: As a result of the Cures Act, medical imaging exams and procedure reports are released immediately into your [facility] medical record. You may view this report before your referring provider. If you have questions, please contact your health care provider. EXAM: XR RETROGRADE PYELOGRAM W/WO KUB LOCATION: [facility] MEDICAL IMAGING DATE/TIME: 01/10/2022 4:13 PM [...] For Patients: As a result of the Cures Act, medical imaging exams and procedure reports are released immediately into your electronic medical record. You may view this report before your referring provider. If you have questions, please contact [facility] health care provider. EXAM: XR RETROGRADE PYELOGRAM W/WO KUB LOCATION: [facility] MEDICAL IMAGING DATE/TIME: 01/10/2022 4:13 PM [...] IMAGING STONE ANALYSIS (01/10/2022 3:53 PM CDT) P athologist Signature Source Comment 01/14/2022 [facility] 6:07 PM CDT [facility] (CET) Comment: Multiple sources Color Michaels 01/14/2022 6:07 PM CDT [facility] (CET) Size 4x4 mm 01/14/2022 6:07 PM CDT [facility]OT[facility]IC TESTING (CET) Comment: Multiple pieces received. ??Dimensions o f the largest piece reported. Weight 55 mg 01/14/2022 6:07 PM CDT [facility] TEST[facility] (CE T) Composition Comment 01/14/2022 6:[address] [facility] (CE T) Comment: Percentage (Represents the % co mposition) Calcium Oxalate Monoh 30 % 01/14/2022 6:07 PM CDT [facility] (CET) Calcium Oxalate Dihyd 60 % 01/14/2022 6:07 PM CDT [facility] (CET) Hydroxyapatite 10 % 01/14/2022 6:07 PM CDT [facility] (CET) Comment Comment 01/14/2022 6:07 PM CDT [facility] (CET) Comment: Source Provided: left ureteral and left kidney Comment Comment 01/14/2022 6:07 PM CDT [facility] (CET) Comment: Calculus received in liquid. Wet calculi must be dried before analysis, which delays reporting of results. Leaving calculi in liquid (such as water, saline , blood, urine) may lead to changes in composition. Photo Comment 01/14/2022 6:07 PM CDT [facility] (CET) Comment: Photograph will follow under a separate cover Comment: Comment 01/14/2022 6:07 PM CDT [facility] (CE T) Comment: Physician questions regarding Calculi An alysis contact [facility] at: [phone]. Please note: Comment 01/14/2022 6:07 PM CDT [facility] (CE T) Comment: Calculi report will follow via computer, mail or general foundry worker delivery. Disclaimer: Comment 01/14/2022 6:[address] [facility] (CE T) Comment: This test was developed and its performa nce characteristics determined by [facility]. ??It has not been cleared or approved by the Food and Drug Administration. Specimen Anatomical Collection Method Collection Time Receive d Time (Source) Location / / Volume Laterality Calculi (stone) Non-Blood / 01/10/2022 3:53 PM 2021 4:57 (Left Ureter Unknown CDT PM CDT Stone) Narrative [facility] (CET) - 01/14/2022 6:07 PM CDT Performed at: ??01 - [facility] [address] [place], [place], [place] [id number] Display Trimmer: Rashaad Dominguez PhD, Phone: ?? [phone] Blas Sanz MD SEND OUTS Performing Organization Address City/State/ZIP Code Phon e Number [facility] [address] [place], [place] [address] ESOTERIC TESTING (CET) ETT [...] signed by Elliott Stevens CRNA ? Anthony aMck MD ANESTHESIA PX NOTE ORDERABLE S SCAN-CARDIAC STRIP (01/10/2022 12:00 AM CDT) Narrative 01/10/2022 12:00 AM CDT This result has an attachment that is no t available. Ordered by an unspecified provider. Other Clinical Staff OTHER CORRUGATED BOX MACHINE OPERATOR THIN PREP PAP SCREEN IMAGED (11/17/2021 2:04 PM CDT) - Unsuccessful Attempt Component Value Ref Test Analysis Performed At [facility] gist Range Method Time Signature Case Report Gynecologic Cytology Report ? Case: [id number] ? 12/03/2021 [facility] Authorizing Provider: ??Marilynn Springer MD ??Collected: ? 11/17/2021 1404 ? 8:52 AM HEALTH Ordering Location: ? [facility] C[facility]TRAL LAB ?Received: ?11/19/2021 0846 ? CDT [place] BORATORY-C First Screen: ? Reid oBrden ? ENTRAL Rescreen: ?Avelina Sainz ? LABORATORY Specimen: ?CORRUGATED BOX MACHINE OPERATOR ThinPrep Vial Screening, Cervical/Vaginal ? INTERPRETATION UNSATISFACTORY (none) 12/03/2021 [facility] Electronically /RESULT FOR EVALUATION 8:52 AM HEALTH stevie d by Alistair ([facility]) CDT LABORATORY-C Avelina o n ENTRAL 12/03/2021 at LABORATORY 8:52 AM SPECIMEN Specimen processed and exami vicky, but unsatisfactory for evaluation of epithelial abnormality because of: 12/03/2021 [facility] ADEQUACY Scant cellularity 8:52 AM [facility] LABORATORY-C ENTRAL LABORATORY HPV REQUEST HPV and PAP 12/03/2021 [facility] 8:52 AM [facility] CDT LABORATORY-C ENTRAL LABORATORY Additional 12/03/2021 [facility] Information 8:52 AM [facility] LABORATORY-C ENTRSC LABORATORY Comment: Interpreted at [facility], Central Laboratory - [address], [place] [address] Automated Review Successful 12/03/2021 8:52 AM [facility] LABORATORY-CENTRAL L ABORATORY Comment: Specimen processed successfully by automated coffee sommelier device, ThinPrep Imaging System, [employer] ANCILLARY TESTING HPV Ordered, 12/03/2021 8:52 AM [facility] CORRUGATED BOX MACHINE OPERATOR Please see T LABORATORY-CENTRAL separate report LABORATORY Note The pap test is a 12/03/2021 8:52 AM [facility] LAB[facility]ATORY-CENTRAL technique, not a LABORATORY diagnostic [...] / Volume Laterality Other 11/17/2021 2:04 PM 2 8:46 (Cervical/Vagina CDT AM CDT l) Marilynn Castro MD PATHOLOGY/CYTOLOGY Performing Organization Address City/State/ZIP Code Phon e Number [facility] [phone] [place] [address] [place] [address] LABORATORY-CENTRAL 2000 LABORATORY HPV HIGH RISK (11/17/2021 2:04 PM CDT) Analysis Performed At Patho logist Time Signature TYPE 16 Negative Negative 11/22/2021 [facility] 2:06 PM CDT LABORATORY-ARTUR TRAL LABORATORY TYPE 18 Negative Negative 11/22/2021 [facility] 2:06 PM CDT LABORATORY-ARTUR TRAL LABORATORY OTHER HIGH Negative Negative 11/22/2021 [facility] [employer] RISK TYPES 2:06 PM CDT LABORATORY-ARTUR TRAL LABORATORY Specimen Anatomical Collection Method Collection Time Receive d Time (Source) Location / / Volume Laterality Other 11/17/2021 2:04 PM 2 8:46 (Cervical/Vagina CDT AM CDT l) Narrative [facility] LABORATORY-CENTRAL LABORAT ORY - 11/22/2021 2:06 PM CDT HPV types 16, 18, 31, 33, 35, 39, 45, 51, 52, 56, 58, 59, 66 and 68 DNA were undetectable or below the pre-set threshold. Methodology: Barb Micky 4800 HPV Test Marilynn Castro MD MICROBIOLOGY Performing Organization Address City/[facility]/ZIP Code Phon e Number [facility] [address] [place] [address] [place] [address] LABORATORY-CENTRAL 1999 LABORATORY from Last 3 Months Insurance Payer Benefit Plan / Subscriber ID Effective Dates Phone Addre ss Type Group [employer]UE [employer] BL[employer] OF [id number] [facility] [address] [facility] [place] [address] [phone] (Home) [place] [address] Advance Directives Latest Code Status on File Code Status Date Activated Date Inactivated Comments Full Code 01/10/2022 12:26 PM 01/10/2022 8:41 PM Should be d iscussed pre operatively with anesthesia or surgeon Code Status Discussion: Not Discussed Care Teams Pulp Piler Relationship Specialty Start Date End Date Marilynn Castro MD PCP - General Family Practice 12/29/211999 [place] [address]
--- NOTE | 2022-02-16 08:15 | CRLHL7_ITS ---
For Patients: As a result of the Century Cures Act, medical imaging exams and procedure reports are released immediately into your electronic medical record. You may view this report before your referring provider. If you have questions, please contact your health care provider. CLINICAL HISTORY: Nephrolithiasis COMPARISON: Pelvic ultrasound 12/29/2021. CT 12/17/2021 TECHNIQUE: Santiago scale and color Doppler images were acquired of the kidneys and urinary bladder. FINDINGS: Tiny echogenic foci are present within the left kidney. No hydronephrosis. No right-sided stones. Stone burden has decreased compared to the prior study. The endometrium appears similar compared to the prior studies. Recommendations as before. The right kidney measures 10.2cm in length and the left kidney measures 11.9cm in length. The renal cortex appears of normal thickness. Normal color Doppler flow to both kidneys. The urinary bladder appears normal. Prevoid bladder volume 38 cc. Postvoid bladder volume 2 cc. There is no evidence of bladder calculi or diverticula. IMPRESSION: Decreased stone burden left kidney compared to the prior CT examination. Similar appearance of the endometrium compared to pelvic ultrasound 12/29/2021. Recommendations as before. Dictated by Blas Li MD @ 02/16/2022 9:01:59 AM (Electronically Signed)
== END 2022-02-16 08:03 | disposition home or self-care (01) ==
PROVIDERS: PCP Family Medicine; Visit Provider Urology
DX: N20.0 Calculus of kidney (principal)
CPT/HCPCS: 76775

== ENCOUNTER 2022-05-09 07:17 | Outpatient (CLI) | payer BC, SELFPAY | END 2022-05-09 07:18 | disposition home or self-care (01) | LOC: OP CLINIC 07:19 | PROVIDERS: PCP Family Medicine; Visit Provider Surgery | DX: Z12.11 Encounter for screening for malignant neoplasm of colon (principal); K63.5 Polyp of colon; K57.30 Diverticulosis of large intestine without perforation or abscess without bleeding; K63.89 Other specified diseases of intestine | CPT/HCPCS: 45380; 45385; 88305; 99153; J2250; J3010 ==

== ENCOUNTER 2023-04-19 14:41 | Outpatient (CLI) | payer BC, SELFPAY ==
--- NOTE | 2023-04-19 15:00 | CRLHL7_ITS ---
For Patients: As a result of the Century Cures Act, medical imaging exams and procedure reports are released immediately into your electronic medical record. You may view this report before your referring provider. If you have questions, please contact your health care provider. BILATERAL SCREENING MAMMOGRAM WITH COMPUTER-AIDED DETECTION TECHNIQUE: CC and MLO views were obtained. These mammographic images have been obtained using full-field digital technique. These mammographic images were interpreted with the benefit of computer-aided detection. COMPARISON FILM: 02/08/22, 03/08/19, 03/13/17. FINDINGS: There are scattered areas of fibroglandular density IMPRESSION: There is no radiographic evidence for malignancy. ASSESSMENT: BI-RADS Category 1: Negative RECOMMENDATION: Routine screening mammogram in 1 year. A lay language report of this examination will be provided to the patient. Blas Li M.D. Diagnostic Radiologist [email or web address] UVALDO/Dictated by: Blas Li MD @ 04/20/2023 8:53:00 AM (Electronically Signed)
== END 2023-04-19 14:42 | disposition home or self-care (01) ==
LOC: MAMMO 14:42
PROVIDERS: PCP Family Medicine; Visit Provider Family Medicine
DX: Z12.31 Encounter for screening mammogram for malignant neoplasm of breast (principal)
CPT/HCPCS: 77067

== ENCOUNTER 2023-04-26 07:57 | Outpatient (CLI) | payer BC, SELFPAY ==
--- NOTE | 2023-04-26 08:15 | CRLHL7_ITS ---
For Patients: As a result of the Century Cures Act, medical imaging exams and procedure reports are released immediately into your electronic medical record. You may view this report before your referring provider. If you have questions, please contact your health care provider. CLINICAL HISTORY: History of stones COMPARISON: none TECHNIQUE: Santiago scale and color Doppler images were acquired of the kidneys and urinary bladder. FINDINGS: Left renal pelvis is similar to CT 12/17/2021. Small echogenic foci in the left kidney are unchanged. No right-sided stones. The right kidney measures 11.1cm in length and the left kidney measures 11.6cm in length. The renal cortex measures 1.0 cm on the right and 1.1 cm on the left. The bladder wall is irregularly thickened measuring up to 4.7 millimeters. IMPRESSION: Small nonobstructing left renal calculi with unchanged mild left pelviectasis. Bladder wall thickening. This may be secondary to incomplete distension. Cannot exclude cystitis. Dictated by Blas Li MD @ 04/26/2023 8:58:31 AM (Electronically Signed)
--- NOTE | 2023-04-26 09:15 | CRLHL7_ITS ---
For Patients: As a result of the Century Cures Act, medical imaging exams and procedure reports are released immediately into your electronic medical record. You may view this report before your referring provider. If you have questions, please contact your health care provider. Indication: HISTORY OF URINARY STONES Technique: Abdomen 1 view. Comparison: CT 12/17/2021 Findings: Interval clearing of the previously noted left proximal ureteral stone. No bowel obstruction. Lung bases clear. Normal osseous structures for age. Impression: Clearing of the previously noted left proximal ureteral stone. Dictated by Blas Li MD @ 04/26/2023 9:26:34 AM (Electronically Signed)
== END 2023-04-26 07:58 | disposition home or self-care (01) ==
LOC: US 07:59
PROVIDERS: PCP Family Medicine; Visit Provider Physician Assistant
DX: Z87.442 Personal history of urinary calculi (principal)
CPT/HCPCS: 74018; 76775

== ENCOUNTER 2024-05-27 08:09 | Outpatient (CLI) | payer BC, SELFPAY ==
--- NOTE | 2024-05-27 08:15 | CRLHL7_ITS ---
For Patients: As a result of the Century Cures Act, medical imaging exams and procedure reports are released immediately into your electronic medical record. You may view this report before your referring provider. If you have questions, please contact your health care provider. CLINICAL HISTORY: History of kidney stones COMPARISON: 04/26/2023 TECHNIQUE: Santiago scale and color Doppler images were acquired of the kidneys and urinary bladder. FINDINGS: Left renal calculus measures 4 x 2 x 3 millimeters. Mild prominence of the left renal collecting system again noted. The right kidney measures 11.4cm in length and the left kidney measures 12.6cm in length. The renal cortex measures 1 cm on the right and 1 cm on the left. Prevoid bladder volume 49 cc. Postvoid bladder volume 5 cc. Color Doppler images reveal a normal appearance of the left ureteral jet. There is no evidence of bladder calculi or diverticula. IMPRESSION: Left renal calculus measures 4 millimeters with similar-appearing prominence of the left renal collecting system. Dictated by Blas Li MD @ 05/27/2024 11:16:31 AM (Electronically Signed)
--- NOTE | 2024-05-27 09:00 | CRLHL7_ITS ---
For Patients: As a result of the Century Cures Act, medical imaging exams and procedure reports are released immediately into your electronic medical record. You may view this report before your referring provider. If you have questions, please contact your health care provider. Indication: History of kidney stone. Technique: Abdomen 1 view. Comparison: 04/26/2023. Findings: No urinary tract calculi visible at this time. Bowel gas pattern nonobstructive. Osseous structures unremarkable for age. Impression: No urolithiasis visible. Dictated by Aubrey Mcnamara MD @ 05/27/2024 10:43:42 AM (Electronically Signed)
== END 2024-05-27 08:10 | disposition home or self-care (01) ==
LOC: US 08:10
PROVIDERS: PCP Family Medicine; Visit Provider Physician Assistant
DX: N20.0 Calculus of kidney (principal)
CPT/HCPCS: 74018; 76770

== ENCOUNTER 2024-06-17 08:25 | Outpatient (CLI) | payer BC, SELFPAY | END 2024-06-17 08:26 | disposition home or self-care (01) | LOC: NFLDREF 06-19 05:19 | PROVIDERS: PCP Family Medicine; Referring Provider Family Medicine; Visit Provider Family Medicine | DX: E78.5 Hyperlipidemia, unspecified (principal); E55.9 Vitamin D deficiency, unspecified; Z13.6 Encounter for screening for cardiovascular disorders | CPT/HCPCS: 80053; 80061 ==

== ENCOUNTER 2024-08-30 08:15 | Outpatient (RCR) | payer BC, SELFPAY ==
--- NOTE | 2024-07-03 13:17 | OT.OPOE ---
OT Outpatient Ortho Eval OT Outpatient Ortho Eval* Start: 07/03/24 07:28 Freq: Status: Active Protocol: Document 07/03/24 07:29 AMB (Rec: 07/03/24 12:25 AMB [id number]) E-signed By Marielena Pantoja, OTR/L, CLT, GAS STATION MANAGER OT OP Ortho Eval Details Complexity Complexity Low Insurance Information Insurance Information [employer] Outpatient History/Precautions Current Condition/Medical Diagnosis Referring Provider Dr Castro Medical Diagnoses M65.312 Left UE trigger Thumb M79.642 Pain in left hand M24.849 Other specific joint derangements of unspecified hand Treatment Diagnosis M25.642 Stiffness LUE thumb/ hand R53.1 Weakness LUE thumb/hand M79.645 Pain in LUE thumb/hand M65.312 LUE trigger thumb Date of Onset Chronic since January 2024 Medical Conditions None Medical/Functional History Medical History Reviewed Yes Prior Level of Function/Mobility Prior to this onset of pain, pt had full, pain-free use of her LUE. Pt was treated in this clinic 3 years ago to address tendinitis in her RUE, she responded very well to treatment and has been pain- free in her RUE ever since. 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 She also used her thumb to flip the DVD cases open. Pt states she has increased pain with activities that require gripping, reaching back to grab her seatbelt, putting on her socks, grasping and holding her coffee mug, really anything that requires use of her left hand. Pt states that really the only thing that decreases her pain is just avoiding the things that hurt or resting. Pt rates her average pain at 3/10, describes the pain as occasionally sharp, mostly aching and throbbing in the base of her left thumb and thumb side of her wrist. Goniometric Comments Goniometric Comments Goniometric Comments 07/03/24 Pt demonstrates full, pain-free AROM of BUE with the exception of her LUE thumb and wrist which are as follows : Wrist: Flex/ext: 90, 60 UD/RD: 30/20 Thumb: Radial abd: 35 Palmar abd: 60 Hand Pinch/Dispatcher Radio Strength Hand Pinch/Dispatcher Radio Strength Hand Pinch/Dispatcher Radio Strength Left Hand,Right Hand Left Hand Dispatcher Radio Strength Position 1 in Elbow 45 Flexion (lbs) Lateral Pinch Strength (lbs) 13 Three Point Pinch (lbs) 11 Right Hand Dispatcher Radio Strength Position 1 in Elbow 70 Flexion (lbs) Lateral Pinch Strength (lbs) 16 Three Point Pinch (lbs) 16 OT Objective Data Hand Hand Dominance Right Observations/Posture/Limb Appearance Objective Observations 07/03/24 Minimal swelling is appreciated at the radial aspect of the left wrist, no bruising or discoloration noted. 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 Provocative testing supports diagnosis of deQuervain's tenosynovitis. Pt demonstrates weakness, pain, and limited AROM in the LUE thumb and wrist which limits her ability to complete tasks at home and at work that require gripping, pinching, twisting her wrist and reaching. Pt will benefit from skilled OT intervention to address pain and deficits in order to restore full, pain- free use of her LUE with ADLs and IADLs. Occupational Therapy Treatment Plan - OP Potential Rehabilitation Potential Good Set Goals Goals Set with Patient Yes Goals Goals 1. Pt will be independent and compliant with HEP in order to resume full, pain-free use of the involved UE. 3 weeks 2. Pt will demonstrate full, pain-free AROM of the involved UE in order to improve ability to grasp and hold. 6 weeks 3. 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 8 weeks. Target Date 10/03/24 Treatment Plan Treatment Plan Evaluation,Edema Control, Iontophoresis,Joint Mobilization,Manual Therapy, Splinting,Ultrasound, Therapeutic Exercise, Therapeutic Activities,Self Care/Home Management,Education Other Treatment Plan Iontophoresis with 1.0 cc dexamethasone Expected Frequency 1-2x Week Expected Duration 8-10 Weeks Home Program Home Program Home Program Initiated Home Program Specifics Provided with wrist-based thumb spica splint with instructions to wear splint with all activity, especially with activities that are known to cause pain in LUE wrist and thumb. Will progress HEP next visit Certification Certification Statement I Certify That: Therapy Services Provided, Therapy Plan Established, Therapy Plan Reviewed Certification Information Clinic ID # [id number] Initial Certification Date 07/03/24 Recertification Due Date 10/01/24 Provider Signature Required Yes Provider Signature Shows Agreement With POC & Medical Necessity Physician NPI Number Write NPI# Here Physician Comment/Change Comment or Changes Physician Signature & Date Requested Please Sign/Date Here
== END 2024-12-28 23:59 | disposition home or self-care (01) ==
PROVIDERS: PCP Family Medicine; Visit Provider Family Medicine
DX: M65.312 Trigger thumb, left thumb (principal); M79.642 Pain in left hand; M24.849 Other specific joint derangements of unspecified hand, not elsewhere classified; M79.645 Pain in left finger(s); Z51.89 Encounter for other specified aftercare
CPT/HCPCS: 97033; 97035; 97110; 97140; 97165; 97535; X5282

== ENCOUNTER 2024-09-11 09:03 | Outpatient (CLI) | payer BC, SELFPAY ==
--- NOTE | 2024-09-11 09:15 | CRLHL7_ITS ---
For Patients: As a result of the Century Cures Act, medical imaging exams and procedure reports are released immediately into your electronic medical record. You may view this report before your referring provider. If you have questions, please contact your health care provider. INDICATION: BILATERAL SCREENING MAMMOGRAM, ASYMPTOMATIC 64 Y/O FEMALE COMPARISON: 04/14/2023, 02/08/2022, 03/08/2019 TECHNIQUE: Digital mammogram in CC and MLO projections including computer-aided detection (CAD) and tomosynthesis. BREAST COMPOSITION: There are scattered areas of fibroglandular density. FINDINGS: No suspicious findings. ASSESSMENT: BI-RADS 1 Negative RECOMMENDATION: Annual screening mammogram. A lay language report of this examination will be provided to the patient. Dictated by: Blas Li MD @ 09/11/2024 13:07:01 (Electronically Signed)
== END 2024-09-11 09:04 | disposition home or self-care (01) ==
LOC: MAMMO 09:03
PROVIDERS: PCP Family Medicine; Visit Provider Family Medicine
DX: Z12.31 Encounter for screening mammogram for malignant neoplasm of breast (principal)
CPT/HCPCS: 77063; 77067